=== PATIENT | female | born 1985 | race Caucasian/White ===

== ENCOUNTER 2016-11-04 12:35 | Day surgery (SDC) | payer OTHER ==
[2016-11-01 11:46] VITALS: BMI 18.9
[2016-11-04] MEDS ORDERED: PROPOFOL 20 ML ONE (13:33)
[2016-11-04] MEDS ORDERED: MIDAZOLAM HCL 2 MG/2 ML SINGLE DOSE VIAL ONE (13:33)
[2016-11-04] MEDS ORDERED: LEVOFLOXACIN 500 MG PREMIX BAG IVPB ONE (13:50)
[2016-11-04] MEDS ORDERED: ONDANSETRON 4 MG/2 ML VIAL ONE (13:59)
[2016-11-04] MEDS ORDERED: ONDANSETRON 4 MG/2 ML VIAL IVPUSH PRN (14:51)
[2016-11-04] MEDS ORDERED: oxyCODONE HCL 5 MG TABLET PO PRN (14:51)
[2016-11-04] MEDS ORDERED: LACTATED RINGERS SOLUTION 1,000 ML IV SCH (15:00)
[2016-11-04 15:51] VITALS: TEMP 97.9
[2016-11-04] MEDS ORDERED: ACETAMINOPHEN 1000 MG/100 ML VIAL (NON FORMULARY) IVPB ONE (16:25)
[2016-11-04] MEDS ORDERED: ACETAMINOPHEN INJECTION 100 ML IVPB ONE (16:32)
--- NOTE | 2016-11-04 16:56 | OP ---
Operative Note - Note: Operative Date: 11/04/16 Pre-Operative Diagnosis: left renal stone Operation: left eswl Post-Operative Diagnosis: Same as Pre-op Surgeon: Jovani Charles Anesthesia: Fractional
[2016-11-04 17:36] VITALS: BP 113/64; PULSE 72
--- NOTE | 2016-11-05 09:01 | OP ---
DATE OF OPERATION: 11/04/2016 PREOPERATIVE DIAGNOSIS: Left renal stone. POSTOPERATIVE DIAGNOSIS: Left renal stone. PROCEDURE: Left extracorporeal shock wave lithotripsy. ATTENDING: Vazquez Kitchen MD ANESTHESIA: General. OPERATION: The patient was brought in the operating room, placed in supine position on the operating room table. Ultrasonography and fluoroscopy were performed. A 7-mm left mid pole stone was identified. General anesthesia was then administered. Levaquin was given preoperatively as surgical prophylaxis. Then, 2500 impulses at 17 joules of power were delivered to the stone to perform the lithotripsy. The extracorporeal shock wave lithotripsy was successful with excellent fragmentation under real time ultrasonography and fluoroscopy. No complications were noted. The patient tolerated the procedure very well. VAZQUEZ KITCHEN M.D. [id number]
== END 2016-11-04 17:46 | disposition home or self-care (01) ==
LOC: JASU-SURG 12:35
PROVIDERS: ATTEND Urology
PROC: 0TF4XZZ Fragmentation in Left Kidney Pelvis, External Approach (ICD-10-PCS; principal; 2016-11-04 14:00)
DX: N20.0 Calculus of kidney (principal)
CPT/HCPCS: 84703; 94760

== ENCOUNTER 2020-12-12 22:58 | Inpatient (IN) | payer OTHER ==
[2020-12-13] MEDS ORDERED: morphine CARPU-JECT 4 MG/1 ML DISP.SYRIN IVPUSH ONE (00:03)
[2020-12-13] MEDS ORDERED: ONDANSETRON 4 MG/2 ML VIAL IVPUSH ONE (00:03)
[2020-12-13] MEDS ORDERED: SODIUM CHLORIDE 1,000 ML IV STA (00:04)
[2020-12-13] MEDS ORDERED: ONDANSETRON 4 MG/2 ML VIAL ONE (00:14)
[2020-12-13] MEDS ORDERED: morphine SULFATE 4 MG/ML VIAL ONE ×2 (00:14→02:52)
[2020-12-13 01:38] LABS: URINE APPEARANCE CLEAR; URINE BILIRUBIN NEGATIVE (NEGATIVE); URINE COLOR YELLOW; URINE GLUCOSE (UA) NEGATIVE (NEGATIVE); URINE KETONE NEGATIVE (NEGATIVE); URINE LEUK ESTERASE NEGATIVE (NEGATIVE); URINE NITRITE NEGATIVE (NEGATIVE); URINE PROTEIN TRACE (NEGATIVE)
[2020-12-13 01:40] LABS: BASO % 0.7 % (0-2.0); EOS % 1.4 % (0-4.5); HEMATOCRIT 38.9 % (32.4-45.2); HEMOGLOBIN 13.3 GM/dL (10.7-15.3); LYMPH % 23.3 % (8-40); MCH 30.4 pg (25.7-33.7); MCHC 34.2 g/dl (32.0-36.0); MEAN CELL VOLUME 88.9 fl (80-96); MEAN PLT VOLUME 7.6 fl (7.5-11.1); MONO % 11.7 % (3.8-10.2); NEUT % 62.9 % (42.8-82.8); PLATELET COUNT 241 10^3/uL (134-434); RBC 4.38 M/mm3 (3.60-5.2)
[2020-12-13 02:09] LABS: BLOOD UREA NITROGEN 22.1 mg/dL (7-18); CALCIUM 8.4 mg/dL (8.5-10.1)
[2020-12-13 02:13] LABS: CREATININE 1.1 mg/dL (0.55-1.3)
[2020-12-13 02:14] LABS: BILIRUBIN,TOTAL 0.4 mg/dL (0.2-1); TOT PROT 6.2 g/dl (6.4-8.2)
[2020-12-13] MEDS ORDERED: SODIUM CHLORIDE 1,000 ML IV SCH ×2 (02:15→20:15)
[2020-12-13] MEDS ORDERED: KETOROLAC TROMETHAMINE 30 MG/1 ML VIAL IM PRN (02:23)
[2020-12-13] MEDS ORDERED: TAMSULOSIN HCL 0.4 MG CAP ONE (02:39)
[2020-12-13] MEDS ORDERED: KETOROLAC TROMETHAMINE 30 MG/1 ML VIAL ONE ×3 (02:39→18:46)
[2020-12-13] MEDS: TAMSULOSIN HCL 0.4 MG CAP PO SCH ×2 (02:45→10:12)
[2020-12-13] MEDS ORDERED: KETOROLAC TROMETHAMINE 30 MG/1 ML VIAL IVPUSH PRN ×3 (02:49→20:15)
[2020-12-13] MEDS: morphine SULFATE 4 MG/ML VIAL IVPUSH PRN ×2 (02:57→07:05)
[2020-12-13 07:59] VITALS: BMI 20.5
[2020-12-13] MEDS ORDERED: ONDANSETRON 4 MG/2 ML VIAL IVPUSH PRN ×4 (08:24→20:15)
[2020-12-13 08:40] LABS: HEMOGLOBIN 13.3 GM/dL (10.7-15.3); RBC 4.37 M/mm3 (3.60-5.2); WHITE BLOOD COUNT 6.3 K/mm3 (4.0-10.0)
[2020-12-13 08:41] LABS: HEMATOCRIT 39.4 % (32.4-45.2); MCH 30.5 pg (25.7-33.7); MCHC 33.9 g/dl (32.0-36.0); MEAN CELL VOLUME 90.1 fl (80-96); MEAN PLT VOLUME 7.2 fl (7.5-11.1); PLATELET COUNT 225 10^3/uL (134-434); RDW 12.8 % (11.6-15.6)
[2020-12-13 08:50] LABS: INR 1.08 (0.83-1.09); PROTHROMBIN TIME (PATIENT) 12.6 SEC (9.7-13.0)
[2020-12-13 09:11] LABS: CALCIUM 8.1 mg/dL (8.5-10.1)
[2020-12-13 09:12] LABS: ALBUMIN 2.9 g/dl (3.4-5.0); BLOOD UREA NITROGEN 23.1 mg/dL (7-18); MAGNESIUM 2.1 mg/dL (1.8-2.4)
[2020-12-13 09:15] LABS: CREATININE 0.8 mg/dL (0.55-1.3)
[2020-12-13 09:16] LABS: BILIRUBIN,TOTAL 0.6 mg/dL (0.2-1); PHOSPHOROUS 2.9 mg/dL (2.5-4.9)
[2020-12-13] MEDS ORDERED: FAMOTIDINE 20 MG TABLET PO SCH (10:00)
[2020-12-13] MEDS ORDERED: HYDROmorphone HCL CARPU-JECT 2 MG/1 ML DISP.SYRIN IVPUSH PRN (12:38)
[2020-12-13] MEDS ORDERED: HYDROmorphone HCl 2 MG/ML VIAL IVPB PRN (13:51)
[2020-12-13] MEDS ORDERED: PROMETHAZINE HCL 25 MG/1 ML VIAL IVPUSH PRN ×2 (14:50→20:15)
[2020-12-13] MEDS ORDERED: LACTATED RINGERS SOLUTION 1,000 ML IV SCH ×2 (15:00→20:15)
[2020-12-13] MEDS ORDERED: LORazepam 2 MG TABLET PO PRN ×2 (16:02→20:15)
[2020-12-13] MEDS ORDERED: PROPOFOL 20 ML ONE (18:44)
[2020-12-13] MEDS ORDERED: MIDAZOLAM HCL 2 MG/2 ML SINGLE DOSE VIAL ONE (18:44)
[2020-12-13] MEDS ORDERED: LIDOCAINE HCL/PF 2% SDV 5ML VIAL ONE (18:46)
[2020-12-13] MEDS ORDERED: DEXAMETHASONE SOD PHOSPHATE 4 MG/1 ML VIAL ONE (18:46)
[2020-12-13] MEDS ORDERED: ceFAZolin SODIUM 1 GM VIAL IVPB ONE (19:10)
[2020-12-13] MEDS ORDERED: GENTAMICIN 80MG PREMIX BAG IVPB ONE (19:15)
[2020-12-13] MEDS: HYDROmorphone HCl 2 MG/ML VIAL IVPB PRN (21:13)
[2020-12-13] MEDS ORDERED: PHENAZOPYRIDINE HCL 100 MG TABLET (FP) PO ONE (21:34)
[2020-12-13] MEDS ORDERED: LORazepam 1 MG TABLET PO PRN (22:34)
[2020-12-14] MEDS: HYDROmorphone HCl 2 MG/ML VIAL IVPB PRN (05:06)
[2020-12-14] MEDS ORDERED: TAMSULOSIN HCL 0.4 MG CAP PO SCH (08:30)
[2020-12-14] MEDS ORDERED: DEXTROSE 5%-WATER 100 ML IVPB ONE (09:11)
[2020-12-14] MEDS: CEFTRIAXONE 2 GM in DEXTROSE 5%-WATER 2 GM/100 ML BAG IVPB SCH (09:21)
[2020-12-14] MEDS: FAMOTIDINE 20 MG TABLET PO SCH (09:22)
[2020-12-14 09:32] LABS: BASO % 0.2 % (0-2.0); EOS % 0.1 % (0-4.5); HEMATOCRIT 39.9 % (32.4-45.2); HEMOGLOBIN 13.6 GM/dL (10.7-15.3); LYMPH % 15.9 % (8-40); MCH 30.4 pg (25.7-33.7); MEAN CELL VOLUME 89.5 fl (80-96); MEAN PLT VOLUME 7.9 fl (7.5-11.1); MONO % 8.6 % (3.8-10.2); NEUT % 75.2 % (42.8-82.8); PLATELET COUNT 225 10^3/uL (134-434); RBC 4.46 M/mm3 (3.60-5.2); RDW 12.8 % (11.6-15.6); WHITE BLOOD COUNT 6.5 K/mm3 (4.0-10.0)
[2020-12-14 10:04] LABS: BLOOD UREA NITROGEN 12.5 mg/dL (7-18); CALCIUM 8.7 mg/dL (8.5-10.1)
[2020-12-14 10:06] LABS: CREATININE 0.7 mg/dL (0.55-1.3)
[2020-12-14 10:08] LABS: BILIRUBIN,TOTAL 0.6 mg/dL (0.2-1); TOT PROT 6.4 g/dl (6.4-8.2)
[2020-12-14] MEDS ORDERED: ACETAMINOPHEN 1000 MG/100 ML VIAL IVPB PRN (10:14)
[2020-12-14] MEDS ORDERED: KETOROLAC TROMETHAMINE 30 MG/1 ML VIAL IVPUSH ONE (10:49)
[2020-12-14] MEDS ORDERED: TAMSULOSIN HCL 0.4 MG CAP PO ONE (11:12)
[2020-12-14] MEDS ORDERED: SODIUM CHLORIDE 1,000 ML IV SCH (11:30)
[2020-12-14] MEDS ORDERED: PT OWN MED DRAWER 7, Y5N ONE (11:50)
[2020-12-14] MEDS: IBUPROFEN 800 MG/8 ML IJ IVPB PRN ×2 (12:12→21:07)
[2020-12-14] MEDS ORDERED: DEXTROSE 50%-WATER 25 GM/50 ML DISP.SYRIN ONE (14:00)
[2020-12-14] MEDS ORDERED: DEXTROSE 50%-WATER 25 GM/50 ML DISP.SYRIN IVPUSH ONE (14:00)
[2020-12-14] MEDS ORDERED: MINERAL OIL ENEMA 133 ML ENEMA PR ONE (14:21)
[2020-12-14] MEDS: ACETAMINOPHEN 1000 MG/100 ML VIAL IVPB PRN (18:10)
[2020-12-14] MEDS: DEXTROSE 5%-NORMAL SALINE 1,000 ML IV SCH (18:10)
[2020-12-14] MEDS: FAMOTIDINE 20 MG/50 ML IVPB 20 MG/50 ML MG IVPB SCH (21:08)
[2020-12-15] MEDS: DEXTROSE 5%-NORMAL SALINE 1,000 ML IV SCH (02:27)
[2020-12-15] MEDS ORDERED: PT OWN MED DRAWER 7, Y5N ONE (03:22)
[2020-12-15] MEDS: ACETAMINOPHEN 1000 MG/100 ML VIAL IVPB PRN ×2 (03:24→14:50)
[2020-12-15] MEDS: IBUPROFEN 800 MG/8 ML IJ IVPB PRN (06:07)
[2020-12-15 06:34] VITALS: BP 119/68; PULSE 78; TEMP 98.2
[2020-12-15 08:26] LABS: BASO % 0.4 % (0-2.0); EOS % 0.7 % (0-4.5); HEMOGLOBIN 12.3 GM/dL (10.7-15.3); LYMPH % 20.5 % (8-40); MCH 30.1 pg (25.7-33.7); MCHC 33.3 g/dl (32.0-36.0); MEAN CELL VOLUME 90.3 fl (80-96); MONO % 11.5 % (3.8-10.2); NEUT % 66.9 % (42.8-82.8); PLATELET COUNT 206 10^3/uL (134-434); RDW 13.1 % (11.6-15.6); WHITE BLOOD COUNT 5.9 K/mm3 (4.0-10.0)
[2020-12-15] MEDS ORDERED: TAMSULOSIN HCL 0.4 MG CAP PO SCH ×2 (08:30)
[2020-12-15 08:58] LABS: CALCIUM 8.4 mg/dL (8.5-10.1)
[2020-12-15 08:59] LABS: ALBUMIN 2.7 g/dl (3.4-5.0); MAGNESIUM 1.9 mg/dL (1.8-2.4)
[2020-12-15 09:02] LABS: CREATININE 0.7 mg/dL (0.55-1.3); PHOSPHOROUS 2.6 mg/dL (2.5-4.9)
[2020-12-15 09:03] LABS: BILIRUBIN,TOTAL 0.6 mg/dL (0.2-1); TOT PROT 5.7 g/dl (6.4-8.2)
[2020-12-15] MEDS ORDERED: DEXTROSE 5%-WATER 100 ML IVPB ONE (10:04)
[2020-12-15] MEDS: FAMOTIDINE 20 MG TABLET PO SCH (10:15)
[2020-12-15] MEDS: CEFTRIAXONE 2 GM in DEXTROSE 5%-WATER 2 GM/100 ML BAG IVPB SCH (10:16)
[2020-12-15] MEDS: FAMOTIDINE 20 MG/50 ML IVPB 20 MG/50 ML MG IVPB SCH (10:54)
== END 2020-12-15 16:19 | disposition home or self-care (01) | DRG 660 ==
LOC: JER 22:58 → UNDOADMIN 12-13 01:54 → JASUSAT 12-13 01:54 → SUATTDRO 12-13 01:54 → JERBED 12-13 01:54 → J8W 12-13 05:38 → UNDOADMIN 12-13 12:27 → J8W 12-13 13:06 → JASUSAT 12-13 13:07 → J8W 12-13 13:07
PROVIDERS: ADMIT Student in an Organized Health Care Education/Training Program; ATTEND Student in an Organized Health Care Education/Training Program
PROC: 0T768DZ Dilation of Right Ureter with Intraluminal Device, Via Natural or Artificial Opening Endoscopic (ICD-10-PCS; principal; 2020-12-13 18:15)
PROC: BT14ZZZ Fluoroscopy of Kidneys, Ureters and Bladder (ICD-10-PCS; 2020-12-13 18:15)
DX: N13.6 Pyonephrosis (principal); K56.7 Ileus, unspecified; R31.0 Gross hematuria; K29.70 Gastritis, unspecified, without bleeding; B95.2 Enterococcus as the cause of diseases classified elsewhere; N23 Unspecified renal colic
CPT/HCPCS: 36415; 74018-TC-FY; 76000-TC-FY; 76775-TC; 76856-TC; 80053; 81003; 82962; 83735; 84100; 84703; 85025; 85027; 85610; 87040; 87086; 87186; 94010; 94760; 99285-25; C9803; J0131; U0003; U0005

== ENCOUNTER 2021-06-06 14:23 | Inpatient (IN) | payer OTHER ==
[2021-06-06] MEDS ORDERED: morphine CARPU-JECT 4 MG/1 ML DISP.SYRIN IVPUSH ONE (15:25)
[2021-06-06] MEDS ORDERED: SODIUM CHLORIDE 0.9% 500 ML INFUS.BAG IV ONE ×2 (15:26→21:43)
[2021-06-06] MEDS ORDERED: KETOROLAC TROMETHAMINE 30 MG/1 ML VIAL IVPUSH ONE (15:26)
[2021-06-06 15:43] LABS: EPI CELLS >36 /uL (0-25.1); HYALINE CASTS 1 /uL (0-3.1); URINE APPEARANCE CLOUDY; URINE BACTERIA 1219 /uL (0-1359); URINE BILIRUBIN NEGATIVE (NEGATIVE); URINE COLOR YELLOW; URINE GLUCOSE (UA) NEGATIVE (NEGATIVE); URINE KETONE TRACE (NEGATIVE); URINE LEUK ESTERASE TRACE (NEGATIVE); URINE NITRITE NEGATIVE (NEGATIVE); URINE PROTEIN TRACE (NEGATIVE); URINE RBC 9822 /uL (0-23.9); URINE WBC 27 /uL (0-25.8)
[2021-06-06] MEDS ORDERED: morphine SULFATE 4 MG/ML VIAL ONE (15:49)
[2021-06-06] MEDS ORDERED: KETOROLAC TROMETHAMINE 30 MG/1 ML VIAL ONE (15:49)
[2021-06-06 16:05] LABS: BASO % 0.6 % (0-2.0); HEMATOCRIT 38.6 % (32.4-45.2); HEMOGLOBIN 13.1 GM/dL (10.7-15.3); LYMPH % 22.6 % (8-40); MCH 30.4 pg (25.7-33.7); MCHC 33.9 g/dl (32.0-36.0); MEAN CELL VOLUME 89.6 fl (80-96); MEAN PLT VOLUME 7.5 fl (7.5-11.1); MONO % 10.3 % (3.8-10.2); NEUT % 65.5 % (42.8-82.8); PLATELET COUNT 239 10^3/uL (134-434); RBC 4.31 M/mm3 (3.60-5.2); RDW 12.4 % (11.6-15.6); WHITE BLOOD COUNT 5.6 K/mm3 (4.0-10.0)
[2021-06-06 16:11] LABS: INR 1.21 (0.83-1.09)
[2021-06-06 16:18] LABS: CHLORIDE 109 mmol/L (98-107); SODIUM 140 mmol/L (136-145)
[2021-06-06 16:20] LABS: CALCIUM 8.7 mg/dL (8.5-10.1)
[2021-06-06 16:21] LABS: ANION GAP 8 MMOL/L (8-16); BLOOD UREA NITROGEN 12.9 mg/dL (7-18); CO2 23 mmol/L (21-32); GLUCOSE,RANDOM 84 mg/dL (74-106); LIPASE 129 U/L (73-393)
[2021-06-06 16:23] LABS: ALBUMIN 3.5 g/dl (3.4-5.0); SGPT/ALT 15 U/L (13-61)
[2021-06-06 16:24] LABS: CREATININE 0.8 mg/dL (0.55-1.3); SGOT/AST 13 U/L (15-37)
[2021-06-06 16:25] LABS: BILIRUBIN,TOTAL 0.4 mg/dL (0.2-1); TOT PROT 6.8 g/dl (6.4-8.2)
[2021-06-06 16:27] LABS: ALK PHOS 140 U/L (45-117)
[2021-06-06] MEDS ORDERED: morphine CARPU-JECT 2 MG/1 ML DISP.SYRIN IVPUSH ONE ×2 (16:53→21:57)
[2021-06-06] MEDS ORDERED: ACETAMINOPHEN 1000 MG/100 ML BAG IVPB ONE (16:53)
[2021-06-06] MEDS ORDERED: ACETAMINOPHEN INJECTION 100 ML IVPB ONE (17:20)
[2021-06-06] MEDS ORDERED: ONDANSETRON 4 MG/2 ML VIAL IVPUSH ONE (17:43)
[2021-06-06] MEDS ORDERED: ONDANSETRON 4 MG/2 ML VIAL ONE (17:44)
[2021-06-06] MEDS ORDERED: METOCLOPRAMIDE HCL INJECTION 10 MG/2 ML VIAL IVPUSH ONE (21:43)
[2021-06-06] MEDS ORDERED: CEFTRIAXONE 1,000 MG in DEXTROSE 5%-WATER - 50 ML IVPB ONE (21:45)
[2021-06-06] MEDS ORDERED: KETOROLAC TROMETHAMINE 15 MG/ML VIAL IVPUSH PRN (22:09)
[2021-06-06] MEDS ORDERED: TAMSULOSIN HCL 0.4 MG CAP PO ONE (22:22)
[2021-06-06] MEDS ORDERED: ONDANSETRON 4 MG/2 ML VIAL IVPUSH PRN (22:26)
[2021-06-06] MEDS ORDERED: SODIUM CHLORIDE 1,000 ML IV SCH (22:30)
[2021-06-06] MEDS ORDERED: TAMSULOSIN HCL 0.4 MG CAP ONE (22:57)
[2021-06-06] MEDS ORDERED: METOCLOPRAMIDE HCL INJECTION 10 MG/2 ML VIAL ONE (22:57)
[2021-06-06] MEDS ORDERED: CEFTRIAXONE 1 GM/50 ML BAG ONE (22:58)
[2021-06-06] MEDS ORDERED: PROCHLORPERAZINE INJECTION 10 MG/2 ML VIAL IVPB SCH (23:00)
[2021-06-06] MEDS ORDERED: PROCHLORPERAZINE INJECTION 10 MG/2 ML VIAL IVPB PRN (23:22)
[2021-06-06] MEDS ORDERED: PROCHLORPERAZINE INJECTION 10 MG/2 ML VIAL IVPB ONE (23:22)
[2021-06-07] MEDS: ACETAMINOPHEN 1000 MG/100 ML BAG IVPB PRN ×2 (03:58→11:24)
[2021-06-07 09:00] LABS: INR 1.27 (0.83-1.09); PROTHROMBIN TIME (PATIENT) 14.6 SEC (9.7-13.0)
[2021-06-07 09:07] LABS: BASO % 0.5 % (0-2.0); EOS % 0.8 % (0-4.5); HEMATOCRIT 35.2 % (32.4-45.2); HEMOGLOBIN 11.7 GM/dL (10.7-15.3); LYMPH % 30.6 % (8-40); MCHC 33.1 g/dl (32.0-36.0); MEAN CELL VOLUME 90.6 fl (80-96); MEAN PLT VOLUME 8.3 fl (7.5-11.1); MONO % 10.7 % (3.8-10.2); NEUT % 57.4 % (42.8-82.8); PLATELET COUNT 225 10^3/uL (134-434); RBC 3.89 M/mm3 (3.60-5.2); RDW 12.9 % (11.6-15.6); WHITE BLOOD COUNT 3.9 K/mm3 (4.0-10.0)
[2021-06-07 09:19] LABS: CALCIUM 8.2 mg/dL (8.5-10.1)
[2021-06-07 09:23] LABS: CREATININE 0.6 mg/dL (0.55-1.3); PHOSPHOROUS 2.6 mg/dL (2.5-4.9)
[2021-06-07 09:24] LABS: TOT PROT 5.6 g/dl (6.4-8.2)
[2021-06-07 09:25] LABS: BILIRUBIN,TOTAL 0.8 mg/dL (0.2-1)
[2021-06-07 09:26] LABS: ALBUMIN 2.7 g/dl (3.4-5.0)
[2021-06-07] MEDS ORDERED: CEFTRIAXONE 1 GM in DEXTROSE 5%-WATER - 50 ML IVPB SCH (10:00)
[2021-06-07] MEDS: SODIUM CHLORIDE 1,000 ML IV SCH ×2 (10:30→16:29)
[2021-06-07] MEDS: TAMSULOSIN HCL 0.4 MG CAP PO SCH (10:30)
[2021-06-07] MEDS ORDERED: ACETAMINOPHEN 325 MG TABLET (FP) PO PRN (16:50)
[2021-06-08] MEDS: PANTOPRAZOLE 40 MG TABLET PO SCH ×2 (09:34→09:37)
[2021-06-08] MEDS: TAMSULOSIN HCL 0.4 MG CAP PO SCH ×2 (09:34→09:37)
[2021-06-08] MEDS ORDERED: ENOXAPARIN NA (PORCINE) 40 MG/0.4 ML DISP.SYRIN SQ SCH (10:00)
[2021-06-08 15:24] VITALS: BMI 18.3
[2021-06-08] MEDS ORDERED: PROPOFOL 20 ML ONE (17:53)
[2021-06-08] MEDS ORDERED: MIDAZOLAM HCL 2 MG/2 ML SINGLE DOSE VIAL ONE (17:53)
[2021-06-08] MEDS ORDERED: GENTAMICIN SO4 80 MG/2 ML VIAL ONE (18:09)
[2021-06-08] MEDS ORDERED: ceFAZolin SODIUM 1 GM VIAL ONE (18:09)
[2021-06-08] MEDS ORDERED: ceFAZolin SODIUM 1 GM VIAL IVPB ONE (18:11)
[2021-06-08] MEDS ORDERED: GENTAMICIN 80MG PREMIX BAG IVPB ONE (18:12)
[2021-06-08] MEDS ORDERED: DEXAMETHASONE SOD PHOSPHATE 4 MG/1 ML VIAL ONE (18:27)
[2021-06-08] MEDS ORDERED: KETOROLAC TROMETHAMINE 30 MG/1 ML VIAL ONE (18:28)
[2021-06-08] MEDS ORDERED: ACETAMINOPHEN 325 MG TABLET (FP) PO PRN (18:32)
[2021-06-08] MEDS ORDERED: PROCHLORPERAZINE INJECTION 10 MG/2 ML VIAL IVPB PRN (18:32)
[2021-06-08] MEDS ORDERED: KETOROLAC TROMETHAMINE 15 MG/ML VIAL IVPUSH PRN (18:32)
[2021-06-08] MEDS ORDERED: ONDANSETRON 4 MG/2 ML VIAL IVPUSH PRN (18:32)
[2021-06-08] MEDS ORDERED: LACTATED RINGERS SOLUTION 1,000 ML IV SCH (19:00)
[2021-06-09] MEDS: SODIUM CHLORIDE 1,000 ML IV SCH (09:33)
[2021-06-09 09:45] VITALS: BP 123/77; PULSE 72; TEMP 98.3
[2021-06-09] MEDS ORDERED: PANTOPRAZOLE 40 MG TABLET PO SCH (10:00)
== END 2021-06-09 11:10 | disposition home or self-care (01) | DRG 661 ==
LOC: JER 14:23 → SUATTDRO 14:23 → J8W 21:44 → OBSVTOIN 06-08 13:17
PROVIDERS: ADMIT Internal Medicine; ATTEND Internal Medicine
PROC: BT1FZZZ Fluoroscopy of Left Kidney, Ureter and Bladder (ICD-10-PCS; 2021-06-08)
PROC: 0TC78ZZ Extirpation of Matter from Left Ureter, Via Natural or Artificial Opening Endoscopic (ICD-10-PCS; principal; 2021-06-08 18:00)
PROC: 0T778DZ Dilation of Left Ureter with Intraluminal Device, Via Natural or Artificial Opening Endoscopic (ICD-10-PCS; 2021-06-08 18:00)
DX: N20.1 Calculus of ureter (principal); K29.70 Gastritis, unspecified, without bleeding
CPT/HCPCS: 36415; 74178-TC; 80053; 81003; 82360; 83690; 83735; 84100; 84702; 85025; 85610; 86850; 86900; 86901; 87086; 88300-TC; 93005; 93010; 94760; 99285-25; C9803-CS; G0378; Q9967; U0003; U0005

== ENCOUNTER 2021-06-18 15:46 | Emergency (ER) | payer OTHER ==
[2021-06-18 16:05] VITALS: BMI 19.7
[2021-06-18] MEDS ORDERED: ACETAMINOPHEN 1000 MG/100 ML BAG IVPB ONE (19:58)
[2021-06-18] MEDS ORDERED: KETOROLAC TROMETHAMINE 15 MG/ML VIAL IVPUSH ONE (20:10)
[2021-06-18] MEDS ORDERED: FAMOTIDINE 20 MG/50 ML IVPB 20 MG/50 ML MG IVPB ONE (20:11)
[2021-06-18] MEDS ORDERED: KETOROLAC TROMETHAMINE 15 MG/ML VIAL ONE (20:23)
[2021-06-18] MEDS ORDERED: ACETAMINOPHEN INJECTION 100 ML IVPB ONE (20:23)
[2021-06-18 20:49] LABS: BASO % 0.4 % (0-2.0); HEMATOCRIT 41.2 % (32.4-45.2); HEMOGLOBIN 13.9 GM/dL (10.7-15.3); LYMPH % 6.1 % (8-40); MCH 29.9 pg (25.7-33.7); MCHC 33.7 g/dl (32.0-36.0); MEAN CELL VOLUME 88.9 fl (80-96); MEAN PLT VOLUME 7.6 fl (7.5-11.1); MONO % 9.4 % (3.8-10.2); NEUT % 84.1 % (42.8-82.8); PLATELET COUNT 295 10^3/uL (134-434); RBC 4.64 M/mm3 (3.60-5.2); RDW 12.7 % (11.6-15.6); WHITE BLOOD COUNT 6.7 K/mm3 (4.0-10.0)
[2021-06-18] MEDS ORDERED: FAMOTIDINE 10 MG/ML VIAL IVPB ONE (21:07)
[2021-06-18 21:10] LABS: ACTIVATED PTT 29.9 SECONDS (25.2-36.5); INR 1.22 (0.83-1.09); PROTHROMBIN TIME (PATIENT) 14.1 SEC (9.7-13.0)
[2021-06-18 21:20] LABS: EPI CELLS >36 /uL (0-25.1); HYALINE CASTS 4 /uL (0-3.1); PH,URINE 6.5 (5.0-8.0); URINE APPEARANCE CLOUDY; URINE BACTERIA 1658 /uL (0-1359); URINE BILIRUBIN NEGATIVE (NEGATIVE); URINE COLOR YELLOW; URINE GLUCOSE (UA) NEGATIVE (NEGATIVE); URINE KETONE NEGATIVE (NEGATIVE); URINE LEUK ESTERASE TRACE (NEGATIVE); URINE NITRITE NEGATIVE (NEGATIVE); URINE PROTEIN 1+ (NEGATIVE); URINE RBC 28 /uL (0-23.9); URINE WBC 91 /uL (0-25.8)
[2021-06-18 21:21] LABS: BLOOD UREA NITROGEN 12.8 mg/dL (7-18); CALCIUM 9.4 mg/dL (8.5-10.1)
[2021-06-18 21:24] LABS: CREATININE 0.8 mg/dL (0.55-1.3)
[2021-06-18 21:26] LABS: BILIRUBIN,TOTAL 0.5 mg/dL (0.2-1)
[2021-06-18 21:30] LABS: ALBUMIN 3.8 g/dl (3.4-5.0)
[2021-06-19] MEDS ORDERED: LACTATED RINGERS SOLUTION 1000 ML INFUS.BAG IV ONE (00:03)
[2021-06-19 01:52] VITALS: BP 104/60; PULSE 79
[2021-06-19 02:05] VITALS: TEMP 98.9
== END 2021-06-19 02:20 | disposition home or self-care (01) ==
LOC: JER 15:46
PROC: 3E0333Z Introduction of Anti-inflammatory into Peripheral Vein, Percutaneous Approach (ICD-10-PCS; principal; 2021-06-18)
PROC: 3E033GC Introduction of Other Therapeutic Substance into Peripheral Vein, Percutaneous Approach (ICD-10-PCS; 2021-06-18)
DX: R50.9 Fever, unspecified (principal); N39.0 Urinary tract infection, site not specified
CPT/HCPCS: 36415; 71045-TC-FY; 74176-TC; 80053; 81003; 83605; 83690; 84703; 85025; 85610; 85730; 86850; 86900; 86901; 87040; 87077; 87086; 87804; 87807; 99285-25; C9803-CS; U0003; U0005

== ENCOUNTER 2021-08-26 10:29 | Emergency (ER) | payer OTHER ==
[2021-08-26 10:35] VITALS: BMI 18.9
[2021-08-26] MEDS ORDERED: SODIUM CHLORIDE 1,000 ML IV STA (11:25)
[2021-08-26] MEDS ORDERED: METOCLOPRAMIDE HCL INJECTION 10 MG/2 ML VIAL IVPUSH ONE (11:25)
[2021-08-26] MEDS ORDERED: METOCLOPRAMIDE HCL INJECTION 10 MG/2 ML VIAL ONE (11:26)
[2021-08-26] MEDS ORDERED: ACETAMINOPHEN 1000 MG/100 ML BAG IVPB ONE (11:47)
[2021-08-26] MEDS ORDERED: ACETAMINOPHEN INJECTION 100 ML IVPB ONE (12:26)
[2021-08-26 12:36] LABS: BASO % 0.3 % (0-2.0); EOS % 0.5 % (0-4.5); HEMATOCRIT 43.6 % (32.4-45.2); HEMOGLOBIN 14.5 GM/dL (10.7-15.3); MCH 29.7 pg (25.7-33.7); MCHC 33.2 g/dl (32.0-36.0); MEAN CELL VOLUME 89.3 fl (80-96); MEAN PLT VOLUME 8.3 fl (7.5-11.1); MONO % 8.1 % (3.8-10.2); NEUT % 71.1 % (42.8-82.8); PLATELET COUNT 320 10^3/uL (134-434); RBC 4.89 M/mm3 (3.60-5.2); RDW 12.7 % (11.6-15.6); WHITE BLOOD COUNT 6.6 K/mm3 (4.0-10.0)
[2021-08-26 12:52] LABS: CHLORIDE 104 mmol/L (98-107); SODIUM 140 mmol/L (136-145)
[2021-08-26 12:55] LABS: ALBUMIN 4.2 g/dl (3.4-5.0); ANION GAP 9 MMOL/L (8-16); BLOOD UREA NITROGEN 13.2 mg/dL (7-18); CO2 27 mmol/L (21-32); GLUCOSE,RANDOM 92 mg/dL (74-106); LIPASE 120 U/L (73-393)
[2021-08-26 12:58] LABS: CREATININE 0.9 mg/dL (0.55-1.3); SGOT/AST 12 U/L (15-37); SGPT/ALT 14 U/L (13-61)
[2021-08-26 13:00] LABS: BILIRUBIN,TOTAL 0.7 mg/dL (0.2-1); TOT PROT 7.9 g/dl (6.4-8.2)
[2021-08-26 13:01] LABS: ALK PHOS 132 U/L (45-117)
[2021-08-26 13:42] VITALS: BP 102/62; PULSE 82; TEMP 98.2
== END 2021-08-26 13:44 | disposition left against medical advice (07) ==
LOC: JER 10:29
PROC: 3E033GC Introduction of Other Therapeutic Substance into Peripheral Vein, Percutaneous Approach (ICD-10-PCS; principal; 2021-08-26)
DX: N93.9 Abnormal uterine and vaginal bleeding, unspecified (principal)
CPT/HCPCS: 36415; 80053; 83690; 84702; 84703; 85025; 86850; 86900; 86901; 99284-25